=== PATIENT | male | born 1960 | race Caucasian/White ===

== ENCOUNTER 2022-02-07 21:45 | Emergency (ER) | payer OTHER, MEDICAID ==
[~2022-02-07] VITALS: Ht 190.5 cm; Wt 95.3 kg
[~2022-02-07 21:45] MED LIST: ANAPROX DS550 MG PO; DARVOCET N 1001 TAB PO; DIAZEPAM2 MG PO; VICODIN 5/500 505 MG PO
[2022-02-07] MEDS ORDERED: CARVEDILOL6.25 MG PO (22:07)
[2022-02-07] MEDS ORDERED: DOXYCYCLINE HY100 M3 PO (23:05)
== END 2022-02-07 23:16 | disposition home or self-care (01) ==
LOC: ED 21:45
DX: L02.415 Cutaneous abscess of right lower limb (principal); Z91.030 Bee allergy status; F17.200 Nicotine dependence, unspecified, uncomplicated

== ENCOUNTER 2023-08-20 16:14 | Emergency (ER) | payer SELFPAY ==
[~2023-08-20] VITALS: Ht 190.5 cm; Wt 1129.4 kg
[~2023-08-20 16:14] MED LIST changes: +CARVEDILOL6.25 MG PO; +DOXYCYCLINE HY100 M3 PO
[2023-08-20 17:50] LABS: BASO % 0.5 % (0.0-1.0); EOS # 0.2 10*3/uL (0.0-0.4); HEMATOCRIT 44.9 % (42.0-52.0); LYMPH # 2.4 10*3/uL (1.3-4.4); LYMPH % 29.2 % (27.0-41.0); MEAN CELL VOLUME 90.9 fl (80.0-94.0); MEAN CORPUSCULAR HGB 29.4 pg (27.0-31.0); MEAN CORPUSCULAR HGB CONC 32.3 g/dl (33.0-37.0); MEAN PLATELET VOLUME 10.1 fl (9.6-12.3); MONO # 0.7 10*3/uL (0.1-1.0); MONO % 8.8 % (3.0-9.0); NEUT # 4.7 10*3/uL (2.3-7.9); NEUT % 58.4 % (47.0-73.0); PLATELET COUNT AUTOMATED 165 10*3/uL (130-400); RED BLOOD COUNT 4.94 10*6/uL (4.50-5.90); RED CELL DISTRI WIDTH 13.2 % (0-14.5); WHITE BLOOD COUNT 8.1 10*3/uL (4.8-10.8)
[2023-08-20 18:16] LABS: ALKALINE PHOSPHATASE 75 U/L (46-116); BUN 12 mg/dl (9-23); CHLORIDE 110 mmol/L (98-107); POTASSIUM 4.1 mmol/L (3.4-5.1); SGPT/ALT 10 U/L (5-49); TOTAL PROTEIN 6.2 gm/dL (6.0-8.0)
[2023-08-20] MEDS ORDERED: VIBRA-TAB100 MG PO (18:52)
[2023-08-20] MEDS ORDERED: LASIX40 MG PO (18:52)
[2023-08-20] MEDS ORDERED: K-TAB20 MEQ PO (18:52)
== END 2023-08-20 19:22 | disposition home or self-care (01) ==
LOC: ED 16:14
PROVIDERS: Student in an Organized Health Care Education/Training Program
DX: I89.0 Lymphedema, not elsewhere classified (principal); L03.116 Cellulitis of left lower limb; I10 Essential (primary) hypertension; Z91.030 Bee allergy status; Z87.891 Personal history of nicotine dependence